=== PATIENT | male | born 1950 | race Caucasian/White ===

== ENCOUNTER 2017-04-11 14:18 | Outpatient (CLI) | payer MEDICARE ==
--- NOTE | 2017-04-11 15:38 | CT ---
CT FACIAL BONES WITHOUT CONTRAST: Date: 04/11/17 HISTORY: Toothache 2 weeks ago. Patient having muscular pain left side of jaw. COMPARISON: None. TECHNIQUE: Noncontrast maxillofacial CT is performed in the axial plane. Reformatted images are submitted for in terpretation. FINDINGS: Visualized brain parenchyma is unremarkable. There appears to be a right ocular lens implant. [place] left ocular lens appropriately located. Both globes are intact. Retrobulbar fat is preserved. Symmetr ic attenuation of the optic nerves and ocular rectus muscles. The midline fatty [place] of the tongue is preserved. There are no obvious masses in the oral cavity. E piglottis has a normal caliber. Preepiglottic fat is preserved. Visualized prevertebral soft tissues are unremarkable. There are varying degrees of central canal stenosis and foraminal narrowing on the basis of degenerat rosangela change. Bilaterally, the ostiomeatal complexes are patent. Left Lois cell is noted. There is leftward devia tion of the nasal septum with a bony spur. The osseous margins of the orbits and maxillary sinuses ar e maintained. There is air attenuation in the right lacrimal duct. There is no evidence of significant periodontal disease. The mandible and maxilla are intact. [place] condyles are appropriately located. Mild degenerative change in the left temporomandibular joint. If there is concern for TMJ injury or degenerative change, consider nonemergent MRI. With regards to the facial soft tissue structures, no abnormal attenuation. There is symmetric attenu ation of the temporalis muscles, as well as the medial and lateral pterygoid muscles. Temporalis musc les are also unremarkable. IMPRESSION: 1. Symmetric attenuation of the muscles of mastication. 2. No CT evidence of significant periodontal disease. POS: [facility]
== END 2017-04-11 14:19 | disposition home or self-care (01) ==
LOC: CT 14:18
DX: R68.84 Jaw pain (principal)
CPT/HCPCS: 70486